=== PATIENT | male | born 1930 | race Caucasian/White ===

== ENCOUNTER 2016-09-08 05:39 | Day surgery (SDC) | payer OTHER ==
[2016-09-08] MEDS ORDERED: LIDOCAINE 1% 2 ML INJ ONE (07:48)
[2016-09-08] MEDS ORDERED: D5W LR 1,000 ML IV ONE (08:00)
[2016-09-08] MEDS ORDERED: ceFAZolin 2 GM/DEXTROSE 100 ML IV ONE (08:00)
[2016-09-08] MEDS ORDERED: LR 1,000 ML IV ONE (08:09)
[2016-09-08] MEDS ORDERED: LIDOCAINE 1% 5 ML SDV ID PRN (08:09)
[2016-09-08 08:44] LABS: ANION GAP 7 mEq/L (8-16); CALCIUM 9.3 mg/dL (8.5-10.4); CARBON DIOXIDE 29 mEq/l (22-31); CHLORIDE 102 mEq/L (97-110); CREATININE 1.1 mg/dL (0.7-1.3); GLOMERULAR FILTRATION RATE > 60; GLUCOSE 131 mg/dL (70-100); POTASSIUM 4.2 mEq/L (3.5-5.2); SODIUM 138 mEq/L (134-144)
[2016-09-08] MEDS ORDERED: LIDOCAINE 2% JELLY 20 ML (UROJECT) ONE (10:56)
[2016-09-08] MEDS ORDERED: CEFAZOLIN 2 GM/DEXTROSE/100 ML BAG IV ONE (11:49)
--- NOTE | 2016-09-08 12:00 | GHP ---
[f rep st] PREOP HISTORY AND PHYSICAL DATE OF ADMISSION: 09/08/2016 ADMISSION DIAGNOSIS: Bladder cancer with urinary retention. HISTORY OF PRESENT ILLNESS: This is an 86-year-old gentleman who had external beam radiation for well-differentiated prostate cancer in 1996. He has had lower urinary tract obstruction recently and he was noted to have a history of transitional cell carcinoma of the bladder but on cystoscopy had a stone that was in the urethra that was causing obstruction. At the present time he is admitted for a cysto litholapaxy done at the hospital because of his age and comorbidities. PAST MEDICAL HISTORY: Bladder cancer, prostate cancer, GERD, irradiation cystitis. PAST SURGICAL HISTORY: Adenoidectomy, TURBT, colon surgery, inguinal hernia, radiation seed implant, thyroidectomy, tonsillectomy umbilical hernia. MEDICATIONS: Include calcitriol, fish oil, lisinopril/hydrochlorothiazide 20/ 12.5, magnesium, Rocaltrol, Synthroid, Uribel. ALLERGIES: IVP contrast, Robaxin. FAMILY HISTORY: Positive for hypertension. SOCIAL HISTORY: Moderate alcohol consumption. Former tobacco smoker. . Retired. REVIEW OF SYSTEMS: Negative cardiac, respiratory, GI, endocrine. PHYSICAL EXAM: VITAL SIGNS: Blood pressure is 137/84 in the office, respirations 16, heart rate 83 and regular, O2 saturation on room air 93%. HEENT: Normal. CHEST: Clear. HEART: Regular rate and rhythm. ABDOMEN: Normal. No organomegaly, rebound or guarding. EXTREMITIES: Lower extremities are normal. PLAN: He is admitted for the cystolitholapaxy. /[id number]/MODL MTDD
[2016-09-08] MEDS ORDERED: fentaNYL 100 MCG/2 ML INJ ONE (12:18)
[2016-09-08] MEDS ORDERED: PROPOFOL 200 MG/20 ML VIAL ONE ×2 (12:18→12:49)
[2016-09-08] MEDS ORDERED: ONDANSETRON 4 MG/2 ML VIAL ONE (13:11)
--- NOTE | 2016-09-08 13:45 | GOP ---
[f rep st] OPERATIVE REPORT DATE OF OPERATION: 09/08/2016 SURGEON: Tamir Huang MD PREOPERATIVE DIAGNOSIS: Bladder calculus, urethral stricture. POSTOPERATIVE DIAGNOSIS: Bladder calculus, urethral stricture. PROCEDURE PERFORMED: Cystoscopy with cystolitholapaxy, extraction of the stone, and placement of a catheter. FINDINGS: SPECIMENS: Sent for stone analysis. ESTIMATED BLOOD LOSS: Less than 5 mL. DESCRIPTION OF PROCEDURE: Debman underwent general anesthesia. Prepped and draped in normal jabari rile fashion after appropriate time-out. The scope was passed through the stricture. He tolerated the capacity of the scope because of the dilation from the catheter, and then he had a stone that wa s identified in the bladder and I fragmented it into 2 pieces with the Holmium laser lithotrite. Th e 2 fragments were extracted. We visualized the rest of the bladder, and there was no tumor or ston es noted. 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 He tolerated the procedure well. Specimen sent for pathology, is most likely a calcium oxalate stone by the appearance, and I will attempt to have him remove his catheter prior to discharge. He will see us in the office in 3 weeks. COMPLICATIONS: None. /[id number]/MODL
[2016-09-14 18:06] LABS: SOURCE OF STONE BLADDER STONES
[2016-09-14 18:07] LABS: NIDUS NOT OBSERVED
== END 2016-09-08 14:55 | disposition home or self-care (01) ==
LOC: FSGY 05:39
PROVIDERS: ATTEND Specialist
PROC: 0TCB8ZZ Extirpation of Matter from Bladder, Via Natural or Artificial Opening Endoscopic (ICD-10-PCS; principal; 2016-09-08 12:30)
PROC: 0T9B80Z Drainage of Bladder with Drainage Device, Via Natural or Artificial Opening Endoscopic (ICD-10-PCS; principal; 2016-09-08 12:30)
DX: N21.0 Calculus in bladder (principal); N35.9 Urethral stricture, unspecified; Z85.46 Personal history of malignant neoplasm of prostate; Z85.51 Personal history of malignant neoplasm of bladder; I10 Essential (primary) hypertension; E03.9 Hypothyroidism, unspecified; K21.9 Gastro-esophageal reflux disease without esophagitis; Z96.651 Presence of right artificial knee joint
CPT/HCPCS: 82365-90; J0690; J2405; J2704; J3010